=== PATIENT | male | born 1980 | race Caucasian/White ===

== ENCOUNTER 2020-09-14 15:18 | Inpatient (IN) | payer OTHER ==
[~2020-09-14] VITALS: Ht 167.6 cm; Wt 79.8 kg
[2020-09-14 16:05] LABS: CALCIUM 10.1 mg/dL (8.5-10.1); CARBON DIOXIDE 26.5 mmol/L (21-32); CHLORIDE SERUM 98 mmol/L (98-107); CREATININE SERUM 0.9 mg/dL (0.7-1.3); GFR1 > 60 mL/min; GLUCOSE SERUM 138 mg/dL (74-106); POTASSIUM SERUM 4.3 mmol/L (3.5-5.1); SODIUM SERUM 135 mmol/L (136-145)
[2020-09-14 16:09] LABS: ALBUMIN 4.5 g/dL (3.4-5.0); ALKALINE PHOSPHATASE 196 U/L (46-116); ALT/SGPT 210 U/L (16-63); AST/SGOT 125 U/L (15-37); BILIRUBIN TOTAL 3.7 mg/dL (0.20-1.00); LIPASE 1000 IU/L (73-393)
[2020-09-14 17:02] LABS: PLATELET COUNT 282 x10^3mcL (130-400); RED CELL DISTRIBUTION WIDTH 13.8 % (11.5-14.5)
[2020-09-14 17:38] LABS: BAND NEUTROPHIL 2 % (0-10); MONOCYTE 4 % (0-7); SEGMENTED NEUTROPHILS 87 % (37-75)
[2020-09-14 17:39] LABS: PLATELET MORPHOLOGY PLATELETS NORMAL; rbc morphology (normal/abnorm) NORMAL (NORMAL)
[2020-09-14 21:08] VITALS: BP 163/98
[2020-09-14 21:17] VITALS: Ht 167.6 cm; Wt 79.8 kg
[2020-09-15 04:33] VITALS: BP 151/88
[2020-09-15 07:59] LABS: ALKALINE PHOSPHATASE 139 U/L (46-116); ALT/SGPT 116 U/L (16-63); AST/SGOT 44 U/L (15-37); BILIRUBIN TOTAL 1.9 mg/dL (0.20-1.00); CARBON DIOXIDE 25.7 mmol/L (21-32); CHLORIDE SERUM 104 mmol/L (98-107); CHOLESTEROL 188 mg/dL (<200); CREATININE SERUM 0.7 mg/dL (0.7-1.3); GFR1 > 60 mL/min; GLUCOSE SERUM 93 mg/dL (74-106); LIPASE 311 IU/L (73-393); POTASSIUM SERUM 3.4 mmol/L (3.5-5.1); SODIUM SERUM 138 mmol/L (136-145); TOTAL PROTEIN, SERUM 6.9 g/dL (6.4-8.2); TRIGLYCERIDES 91 mg/dL (<150)
[2020-09-15 08:09] VITALS: BP 153/82
[2020-09-15 08:22] LABS: PLATELET COUNT 247 x10^3mcL (130-400); RED CELL DISTRIBUTION WIDTH 14.3 % (11.5-14.5)
[2020-09-15 08:29] LABS: BASOPHIL % 0 % (0-2)
[2020-09-15 08:49] LABS: ALBUMIN 3.2 g/dL (3.4-5.0); AMYLASE 132 U/L (25-115); CHOLESTEROL/HDL RATIO 5.5; HDL CHOLESTEROL 34 mg/dL (40-60)
[2020-09-15 12:35] VITALS: BP 161/91
[2020-09-15 15:34] VITALS: BP 120/60
[2020-09-15 18:26] LABS: microscopic required? NO
[2020-09-15 19:10] VITALS: BP 151/80
[2020-09-15 19:31] LABS: UA SPECIFIC GRAVITY 1.025 (1.005-1.035); urine erythrocyte NEGATIVE (NEGATIVE)
[2020-09-15 19:46] LABS: AMPHETAMINE QUAL UR NONE DETECTED (See below)
[2020-09-16 05:21] VITALS: BP 146/83
[2020-09-16 06:58] LABS: BASOPHIL % 0.1 % (0-2); PLATELET COUNT 216 x10^3mcL (130-400)
[2020-09-16 07:27] LABS: ALKALINE PHOSPHATASE 120 U/L (46-116); ALT/SGPT 78 U/L (16-63); AMYLASE 46 U/L (25-115); AST/SGOT 22 U/L (15-37); BILIRUBIN TOTAL 1.3 mg/dL (0.20-1.00); CALCIUM 8.4 mg/dL (8.5-10.1); CARBON DIOXIDE 26.9 mmol/L (21-32); CHLORIDE SERUM 100 mmol/L (98-107); CREATININE SERUM 0.7 mg/dL (0.7-1.3); GFR1 > 60 mL/min; GLUCOSE SERUM 72 mg/dL (74-106); LIPASE 77 IU/L (73-393); POTASSIUM SERUM 3.8 mmol/L (3.5-5.1); SODIUM SERUM 135 mmol/L (136-145)
[2020-09-16 07:30] LABS: ALBUMIN 3.2 g/dL (3.4-5.0)
[2020-09-16 08:58] VITALS: BP 139/79
[2020-09-16 18:07] VITALS: BP 137/84
[2020-09-16] MEDS ORDERED: NORCO1 TA2 PO (18:23)
[2020-09-16 20:58] VITALS: BP 147/85
[2020-09-17 05:42] VITALS: BP 131/86
[2020-09-17 06:40] LABS: BASOPHIL % 0.2 % (0-2); PLATELET COUNT 211 x10^3mcL (130-400); RED CELL DISTRIBUTION WIDTH 13.9 % (11.5-14.5)
[2020-09-17 06:51] LABS: ALKALINE PHOSPHATASE 100 U/L (46-116); ALT/SGPT 72 U/L (16-63); AMYLASE 28 U/L (25-115); AST/SGOT 44 U/L (15-37); BILIRUBIN TOTAL 1.1 mg/dL (0.20-1.00); CALCIUM 8.1 mg/dL (8.5-10.1); CARBON DIOXIDE 27.8 mmol/L (21-32); CHLORIDE SERUM 100 mmol/L (98-107); CREATININE SERUM 0.6 mg/dL (0.7-1.3); GFR1 > 60 mL/min; GLUCOSE SERUM 114 mg/dL (74-106); LIPASE 45 IU/L (73-393); POTASSIUM SERUM 3.4 mmol/L (3.5-5.1); SODIUM SERUM 135 mmol/L (136-145); TOTAL PROTEIN, SERUM 6.7 g/dL (6.4-8.2)
[2020-09-17 07:03] LABS: ALBUMIN 2.9 g/dL (3.4-5.0)
[2020-09-17 08:29] VITALS: BP 137/88
[2020-09-17 10:26] VITALS: BP 131/86
[2020-09-17 11:26] VITALS: BP 133/84
== END 2020-09-17 16:00 | disposition home or self-care (01) | DRG 263 ==
LOC: ED 15:18 → MU 19:26 → DU 19:26
PROVIDERS: Internal Medicine Pulmonary Disease; Surgery; ADMIT Hospitalist; ATTEND Hospitalist
PROC: BF131ZZ Fluoroscopy of Gallbladder and Bile Ducts using Low Osmolar Contrast (ICD-10-PCS; 2020-09-16)
PROC: 0FT44ZZ Resection of Gallbladder, Percutaneous Endoscopic Approach (ICD-10-PCS; principal; 2020-09-16 11:00)
DX: K80.20 Calculus of gallbladder without cholecystitis without obstruction (principal); K85.10 Biliary acute pancreatitis without necrosis or infection; F17.210 Nicotine dependence, cigarettes, uncomplicated; Z20.828 Contact with and (suspected) exposure to other viral communicable diseases; E87.6 Hypokalemia; Z79.899 Other long term (current) drug therapy
CPT/HCPCS: 74181; C1758; C1887; G0378; J0131; J0360; J1170; J1650; J2001; J2175; J2250; J2270; J2405; J2543; J3010; J3490; J7030; Q9967; U0003